=== PATIENT | female | born 1960 | race Caucasian/White ===

== ENCOUNTER 2020-09-25 15:11 | Outpatient (REF) | payer OTHER, SELFPAY | END 2020-09-25 15:12 | disposition home or self-care (01) | LOC: HO.LAB 15:11 | PROVIDERS: Visit Provider Internal Medicine | DX: Z20.828 Contact with and (suspected) exposure to other viral communicable diseases (principal) | CPT/HCPCS: C9803; U0003 ==

== ENCOUNTER 2020-10-17 12:46 | Emergency (ER) | payer OTHER, SELFPAY ==
[2020-10-17 13:53] VITALS: BP 150/80; PULSE 73; RESP 16; TEMP 36.8; O2SAT 97; BMI 26.9
--- NOTE | 2020-10-17 13:54 | ED_ITS ---
HPI - General Adult General Chief complaint: Back Pain/Injury <Chyna Hagan NP - Last Filed: 10/17/20 14:58> Stated complaint: back pain <Chyna Hagan NP - Last Filed: 10/17/20 14:58> Time Seen by Provider: 10/17/20 13:23 <Chyna Hagan NP - Last Filed: 10/17/20 14:58> Source: patient <Chyna Hagan NP - Last Filed: 10/17/20 14:58> Mode of arrival: ambulatory <Chyna Hagan NP - Last Filed: 10/17/20 14:58> Limitations: no limitations <Chyna Hagan NP - Last Filed: 10/17/20 14:58> History of Present Illness HPI narrative: 60yo female here with low back pain x 1 week. No radiation of pain. No numbness/tingling. No bowel or bladder incontinence. No fevers/chills. Pt is ambulatory. Listed allergy to naproxen but tells me she can take ibuprofen. <Chyna Hagan NP - Last Filed: 10/17/20 14:58> Onset (ago): week(s) <Chyna Hagan NP - Last Filed: 10/17/20 14:58> Location: back <Chyna Hagan NP - Last Filed: 10/17/20 14:58> Radiation: non-radiation <DEREK Meraz Last Filed: 10/17/20 14:58> Severity: mild <Chyna Hagan NP - Last Filed: 10/17/20 14:58> Pain Consistency: constant <Chyna Hagan NP - Last Filed: 10/17/20 14:58> Relieving factors: none <Chyna Hagan NP - Last Filed: 10/17/20 14:58> Exacerbating factors: none <DEREK Meraz Last Filed: 10/17/20 14:58> Associated symptoms: denies other symptoms <Chyna Hagan NP - Last Filed: 10/17/20 14:58> Treatments prior to arrival: none <Chyna Hagan NP - Last Filed: 10/17/20 14:58> Related Data Home medications: Previous Rx's Medication Instructions Recorded cyclobenzaprine 10 mg PO TID #10 tab 10/17/20 ibuprofen 800 mg PO Q8H PRN #20 tab 10/17/20 lidocaine [Lidoderm] 1 patch TOPICAL DAILY #15 ea 10/17/20 <Chyna Hagan NP - Last Filed: 10/17/20 14:58> Allergies/adverse reactions: Allergies Allergy/AdvReac Type Severity Reaction Status Date / Time naproxen [From NAPROSYN] Allergy Mild UPSET Unverified 06/15/20 18:12 STOMACH <Chyna Hagan NP - Last Filed: 10/17/20 14:58> Review of Systems Review of Systems: Yes all other systems are reviewed and are negative <Chyna Hagan NP - Last Filed: 10/17/20 14:58> Constitutional: Constitutional: Reports no additional constitutional complaints, Denies body ache(s), Denies chills, Denies fever(s), Denies headache(s) and Denies weakness <Chyna Hagan NP - Last Filed: 10/17/20 14:58> Eyes: Eyes: Reports no additional eye complaints and Denies change in vision <Chyna Hagan NP - Last Filed: 10/17/20 14:58> ENT: Reports system reviewed and no additional complaints, except as documented, Denies dizziness, Denies headache(s), Denies nasal congestion, Denies nasal discharge and Denies neck pain <Chyna Hagan NP - Last Filed: 10/17/20 14:58> Cardiovascular: Cardiovascular: Reports no additional cardiovascular complaints, Denies chest pain, Denies leg edema and Denies dyspnea <Chyna Hagan NP - Last Filed: 10/17/20 14:58> Respiratory: Respiratory: Reports no additional respiratory complaints, Denies cough and Denies dyspnea <Chyna Hagan NP - Last Filed: 10/17/20 14:58> Gastrointestinal: Gastrointestinal: Reports no additional gastrointestinal complaints, Denies abdominal pain, Denies diarrhea, Denies nausea and Denies vomiting <Chyna Hagan NP - Last Filed: 10/17/20 14:58> Genitourinary: Genitourinary: Reports no additional female genitourinary complaints and Denies urinary incontinence <Chyna Hagan NP - Last Filed: 10/17/20 14:58> Musculoskeletal: Musculoskeletal: Reports no additional musculoskeletal complaints, Reports back pain, Denies arthralgias, Denies joint swelling, Denies neck pain, Denies numbness and Denies tingling <Chyna Hagan NP - Last Filed: 10/17/20 14:58> Integumentary/Breasts: Skin/Breast: Reports system reviewed and no additional complaints, except as docu and Denies rash <Chyna Hagan NP - Last Filed: 10/17/20 14:58> Neurologic: Reports system reviewed and no additional complaints, except as documented, Denies Abnormal speech present, Denies dizziness, Denies headache(s), Denies numbness, Denies tingling and Denies weakness <Chyna Hagan NP - Last Filed: 10/17/20 14:58> PMF Past Medical History Attestation statement: The following information was validated with the patient. <Chyna Hagan NP - Last Filed: 10/17/20 14:58> Source: old records reviewed and nursing notes reviewed <Chyna Hagan NP - Last Filed: 10/17/20 14:58> Medical History: Medical History (Updated 10/18/20 @ 00:00 by Mitchell Rodriguez) Asthma Hyperlipidemia <Chyna Hagan NP - Last Filed: 10/17/20 14:58> Social History Social History: Social History Advance Directives: No Advance Directives Information Provided: No <Chyna Hagan NP - Last Filed: 10/17/20 14:58> Physical Exam Vital Signs: Vital Signs: Last Vital Signs Temp 98.2 F 10/17/20 13:53 Pulse 73 10/17/20 13:53 Resp 16 10/17/20 13:53 BP 150/80 H 10/17/20 13:53 Pulse Ox 97 10/17/20 13:53 Body Mass Index 26.9 <Chyna Hagan NP - Last Filed: 10/17/20 14:58> Vital Signs: Last Vital Signs Temp 98.2 F 10/17/20 13:53 Pulse 73 10/17/20 13:53 Resp 16 10/17/20 13:53 BP 150/80 H 10/17/20 13:53 Pulse Ox 97 10/17/20 13:53 Body Mass Index 26.9 <Valente Carlos MD - Last Filed: 10/25/20 08:18> Const: General: cooperative, healthy appearing, comfortable and no acute distress <Chyna Hagan NP - Last Filed: 10/17/20 14:58> Orientation/consciousness: patient oriented x3 <Chyna Hagan NP - Last Filed: 10/17/20 14:58> Limitations: no limitations <Chyna Hagan NP - Last Filed: 10/17/20 14:58> HENMT: Head: Yes normal to inspection <Chyna Hagan NP - Last Filed: 10/17/20 14:58> Ears: hearing grossly normal bilaterally <Chyna Hagan NP - Last Filed: 10/17/20 14:58> General nose exam: Normal external nose present <Chyna Hagan NP - Last Filed: 10/17/20 14:58> Face and sinus: Yes normal facial exam <Chyna Hagan NP - Last Filed: 10/17/20 14:58> Mouth: Normal oral and palatal mucosa present <Chyna Hagan NP - Last Filed: 10/17/20 14:58> Throat: Yes posterior oropharynx normal <Chyna Hagan NP - Last Filed: 10/17/20 14:58> Eyes: General: appearance normal, both eyes and all related structures <Chyna Hagan NP - Last Filed: 10/17/20 14:58> Pupils: Equal, round and reactive pupils present <Chyna Hagan NP - Last Filed: 10/17/20 14:58> Neck: Neck: Yes normal visual inspection <Chyna Hagan NP - Last Filed: 10/17/20 14:58> Chest: Chest palpation & inspection: normal inspection of the chest <Roseanne Hagan NP - Last Filed: 10/17/20 14:58> Resp: Effort & Inspection: normal respiratory effort <Chyna Hagan NP - Last Filed: 10/17/20 14:58> Auscultation: clear to auscultation bilaterally <Chyna Hagan NP - Last Filed: 10/17/20 14:58> Cardio: Rate: regular rate <Chyna Hagan NP - Last Filed: 10/17/20 14:58> Rhythm: regular rhythm <Chyna Hagan NP - Last Filed: 10/17/20 14:58> Peripheral pulses: Peripheral pulses 2+ throughout <DEREK Meraz L ast Filed: 10/17/20 14:58> GI: Inspection: Yes normal to inspection <Chyna Hagan NP - Last Filed: 10/17/20 14:58> Palpation (GI): Soft to palpation and nontender <Chyna Hagan NP - Last Filed: 10/17/20 14:58> Auscultation: normal bowel sounds <Chyna Hagan NP - Last Filed: 10/17/20 14:58> Back/Spine/Pelvis: Other: mild mid lumbar spinal tenderness with no step offs or deformities <Chyna Hagan NP - Last Filed: 10/17/20 14:58> Thoracic/Lumbar Spine: thoracic and lumbar spine normal to inspection and straight leg raise negative bilaterally <Chyna Hagan NP - Last Filed: 10/17/20 14:58> Skin: General skin exam: no rashes or lesions noted <Chyna Hagan NP - Last Filed: 10/17/20 14:58> Neuro: General: patient oriented x3, no focal motor deficits and normal sensation to monofilament <Chyna Hagan NP - Last Filed: 10/17/20 14:58> Cranial nerves: Yes Equal, round and reactive pupils present <Chyna Hagan NP - Last Filed: 10/17/20 14:58> Cognition (Neuro): normal cognition <Chyna Hagan NP - Last Filed: 10/17/20 14:58> Speech: No Abnormal speech present <Chyna Hagan NP - Last Filed: 10/17/20 14:58> Gait exam (Neuro): Normal gait present <Chyna Hagan NP - Last Filed: 10/17/20 14:58> Motor exam (neuro): 5/5 motor strength present throughout <Chyna Hagan NP - Last Filed: 10/17/20 14:58> Extrem: General: Yes normal to inspection <Chyna Hagan NP - Last Filed: 10/17/20 14:58> Course Course Course Narrative: 60yo female here with atraumatic low back pain. X-rays negative for bony abnormality. Likely lumbar strain No red flag symptoms or neurological deficits. Reviewed worrisome signs/symptoms with the patient and when to return to the ED. comfortable with discharge home. <Chyna Hagan NP - Last Filed: 10/17/20 14:58> I have reviewed the chart <Valente Carlos MD - Last Filed: 10/25/20 08:18> Medical Decision Making Medical Records Medical records reviewed: Yes I reviewed the patient's medical records. <Chyna Hagan NP - Last Filed: 10/17/20 14:58> Imaging Data lumbar xray: Attestation: I personally reviewed and interpreted this imaging study as follows: <Chyna Hagan NP - Last Filed: 10/17/20 14:58> Radiologist's impression: [address] [id number] ReportSigned Patient: Loulou Boothe#: [id number]: 1960Acct:[id number]/Sex: 60 / FADM Date: 10/17/20Loc: [facility] Dr: Ordering Physician: CHYNA HAGAN NP Date of Service: 10/17/20 Procedure(s): XR lumbar spine 2-3V Accession Number(s): [id number] cc: CHYNA HAGAN NP~ EXAMINATION: XR LUMBOSACRAL SPINE CLINICAL INFORMATION: No trauma. Low back pain COMPARISON: None TECHNIQUE: Three views of the lumbosacral spine. FINDINGS: There is normal lumbar lordosis. The vertebral heights and alignment is normal. No acute fracture or dislocation or subluxation seen. There is ununited ossification center anterior superior L4 and L5 vertebra suggestive of limbus vertebrae. The paravertebral soft tissues are normal. XR/XR lumbar spine 2-3V IMPRESSION: Unremarkable lumbar spine exam. <Chyna Hagan NP - Last Filed: 10/17/20 14:58> Discharge Plan Discharge Clinical Impression: Strain of lumbar region <Chyna Hagan NP - Last Filed: 10/17/20 14:58> Patient Disposition: Home, Self-Care <Chyna Hagan NP - Last Filed: 10/17/20 14:58> Instructions: Low Back Strain (ED) <Chyna Hagan NP - Last Filed: 10/17/20 14:58> Additional Instructions: Heat or ice Gentle stretching Avoid heavy lifting or bending <Chyna Hagan NP - Last Filed: 10/17/20 14:58> Prescriptions: New cyclobenzaprine 10 mg tablet 10 mg PO TID Qty: 10 RF: 0 lidocaine [Lidoderm] 5 % adhesive patch,medicated 1 patch topical DAILY Qty: 15 RF: 0 ibuprofen 800 mg tablet 800 mg PO Q8H PRN (Reason: pain) Qty: 20 RF: 0 <Chyna Hagan NP - Last Filed: 10/17/20 14:58> Referrals: Sunitha Miguel [Primary Care Provider] - 2 days <Chyna Hagan NP - Last Filed: 10/17/20 14:58> Interventions: ED Discharge Assessment Last Done: 10/17/20 14:44 <Chyna Hagan NP - Last Filed: 10/17/20 14:58> Discharge Date/Time: 10/17/20 14:45 <Chyna Hagan [facility]ISTRAT[facility] - Last Filed: 10/17/20 14:58>
== END 2020-10-17 14:45 | disposition home or self-care (01) ==
LOC: HO.ED 14:43
PROVIDERS: Emergency Provider Emergency Medicine; PCP Internal Medicine
DX: S39.012A Strain of muscle, fascia and tendon of lower back, initial encounter (principal); X58.XXXA Exposure to other specified factors, initial encounter; Y93.9 Activity, unspecified; Y92.9 Unspecified place or not applicable; Y99.9 Unspecified external cause status
CPT/HCPCS: 72100; 99283

== ENCOUNTER 2020-10-30 09:49 | Outpatient (REF) | payer OTHER, SELFPAY ==
--- NOTE | 2020-10-30 09:54 | MM_ITS ---
EXAMINATION: MM SCREENING DIGITAL BREAST TOMOSYNTHESIS, BILATERAL CLINICAL INFORMATION: Screening. Asymptomatic. The lifetime risk of breast cancer based on the Tyrer-Cuzick Model is 3.4%. COMPARISON: Mammography: August 11, 2019 and studies dating back to November 17, 2012 TECHNIQUE: Digital breast tomosynthesis is performed in both the craniocaudal and mediolateral oblique views along with computer-aided detection (CAD). Synthesized 2D images are generated from the tomosynthesis. FINDINGS: The breasts are almost entirely fatty (ACR BI-RADS breast composition Category a). There are no significant masses, abnormal calcifications, or other abnormalities. MM/MM tomosynthesis screening BI IMPRESSION: There are no significant changes from prior study. ASSESSMENT: BI-RADS 1: Negative RECOMMENDATION: Routine annual mammography screening. This patient's information was entered into a reminder system with a target due date for their next mammogram.
== END 2020-10-30 09:50 | disposition home or self-care (01) ==
LOC: HO.MAMMO 09:49
PROVIDERS: Visit Provider Internal Medicine
DX: Z12.31 Encounter for screening mammogram for malignant neoplasm of breast (principal)
CPT/HCPCS: 77063; 77067

== ENCOUNTER → 2021-01-02 10:14 | Outpatient (BNVA) | payer OTHER, SELFPAY | PROVIDERS: PCP Internal Medicine; Visit Provider Physician Assistant | DX: M77.12 Lateral epicondylitis, left elbow (principal); M77.02 Medial epicondylitis, left elbow | CPT/HCPCS: 20551; 99202; J1020 ==

== ENCOUNTER 2021-01-24 10:01 | Outpatient (REF) | payer OTHER, SELFPAY | END 2021-01-24 10:02 | disposition home or self-care (01) | LOC: HO.LAB 10:01 | PROVIDERS: Visit Provider Internal Medicine | DX: Z20.822 Contact with and (suspected) exposure to COVID-19 (principal) | CPT/HCPCS: C9803; U0003; U0005 ==

== ENCOUNTER 2021-01-24 11:00 | Outpatient (RCR) | payer OTHER, SELFPAY ==
--- NOTE | 2021-02-15 13:27 | MHC.OT.DC ---
[address] [phone] F: [phone] Occupational Therapy Discharge Note Provider: Zoraida Sheridan PA-C Diagnosis: Left lateral epicondylitis injected 01/02/21 Date of Evaluation: 01/11/21 Date of Discharge: 02/15/21 Treatments to Date: 3 Cancellations to Date: No Shows to Date: 1 Discharge Status: Visit Non-compliance Discharge Summary: Concepción was seen in OT for management of left lateral epicondylitis. After three visits, she was reporting slightly decreased pain, worse at night but improved w/ using towel roll at elbow. She has missed the past three appointments, but at this time has been educated on self management through joint protection, activity modification and home exercises. Electronically Signed By: ROB Castillo/Bassem Reviewed/agree with student documentation: N/A Therapist: Please Sign and return to therapist, thank you for your referral.
== END 2021-02-15 13:28 | disposition other institution (70) ==
LOC: HO.OT 11:00
PROVIDERS: PCP Internal Medicine; Visit Provider Physician Assistant
DX: M77.10 Lateral epicondylitis, unspecified elbow (principal)
CPT/HCPCS: 97035; 97110; 97166

== ENCOUNTER 2021-02-13 08:06 | Outpatient (REF) | payer OTHER, SELFPAY | END 2021-02-13 08:07 | disposition home or self-care (01) | LOC: HO.HOSX 08:06 | PROVIDERS: Visit Provider Physician Assistant | DX: Z13.89 Encounter for screening for other disorder (principal) ==

== ENCOUNTER 2021-02-20 09:52 | Outpatient (REF) | payer OTHER, SELFPAY ==
--- NOTE | ~2021-02-20 | XR_ITS ---
EXAMINATION: XR AP STANDING VIEWS OF BOTH KNEES XR RIGHT KNEE CLINICAL INFORMATION: Pain COMPARISON: 06/25/2011 TECHNIQUE: AP standing view of both knees as well as lateral and sunrise views of the right knee. FINDINGS: The right tibial plateaus have the appearance of concavity; however, this is likely related to the angle of the x-ray beam and not due to tibial plateau compression injuries. Joint spaces are maintained. The patellofemoral joint demonstrates some mild spurring about the medial patella facet. No effusion is identified. On lateral view there is a 3 mm density seen overlying the anterior aspect of the right knee joint which was present on previous study of 06/25/2011 and may represent loose body. XR/XR knee RT 2V IMPRESSION: Stable appearance of the right knee. Mild degenerative change patellofemoral joint. 3 mm bony density overlying anterior aspect of the right knee joint space which was present on previous study of 06/25/2011. No effusion.
--- NOTE | ~2021-02-20 | XR_ITS ---
EXAMINATION: XR AP STANDING VIEWS OF BOTH KNEES XR RIGHT KNEE CLINICAL INFORMATION: Pain COMPARISON: 06/25/2011 TECHNIQUE: AP standing view of both knees as well as lateral and sunrise views of the right knee. FINDINGS: The right tibial plateaus have the appearance of concavity; however, this is likely related to the angle of the x-ray beam and not due to tibial plateau compression injuries. Joint spaces are maintained. The patellofemoral joint demonstrates some mild spurring about the medial patella facet. No effusion is identified. On lateral view there is a 3 mm density seen overlying the anterior aspect of the right knee joint which was present on previous study of 06/25/2011 and may represent loose body. XR/XR knee standing BI IMPRESSION: Stable appearance of the right knee. Mild degenerative change patellofemoral joint. 3 mm bony density overlying anterior aspect of the right knee joint space which was present on previous study of 06/25/2011. No effusion.
== END 2021-02-20 09:53 | disposition home or self-care (01) ==
LOC: HO.HOSX 09:52
PROVIDERS: Visit Provider Physician Assistant
DX: M54.10 Radiculopathy, site unspecified (principal); R29.898 Other symptoms and signs involving the musculoskeletal system; M25.561 Pain in right knee; J45.909 Unspecified asthma, uncomplicated; E78.5 Hyperlipidemia, unspecified; Z88.6 Allergy status to analgesic agent
CPT/HCPCS: 73560; 73565; 99202

== ENCOUNTER → 2021-03-14 10:10 | Outpatient (BNVA) | payer OTHER, SELFPAY | PROVIDERS: PCP Internal Medicine; Visit Provider Anesthesiology | DX: M79.604 Pain in right leg (principal); G80.9 Cerebral palsy, unspecified | CPT/HCPCS: 99202 ==

== ENCOUNTER 2021-04-04 08:33 | Outpatient (REF) | payer OTHER, SELFPAY ==
--- NOTE | ~2021-04-04 | MR_ITS ---
MR LUMBAR SPINE WITHOUT IV CONTRAST CLINICAL INFORMATION: Intervertebral disc degeneration. COMPARISON: Lumbar spine radiographs 10/17/2020. TECHNIQUE: MRI of the lumbar spine was obtained using routine sequences without contrast. FINDINGS: There are 5 nonrib-bearing lumbar-type vertebral bodies. Lumbar alignment is normal. The vertebral body heights are maintained. There is disc desiccation at L3-L4. There is no bone marrow edema. There are no acute fractures. Multilevel endplate osteophytes. Disc volumes are maintained. The conus terminates at the L2 level. Bilateral parapelvic cysts. L1-L2 and the L2-L3 disc contours are normal. There is mild bilateral facet arthropathy at these 2 levels. No central canal stenosis and no foraminal stenosis at these levels. L3-L4: There is a small annular disc bulge and there is moderate bilateral facet arthropathy and ligamentum flavum thickening. No central canal stenosis. There is mild foraminal encroachment bilaterally. L4-L5: There is a small annular disc bulge and there is severe bilateral facet arthropathy. No central canal stenosis. Mild foraminal encroachment bilaterally. L5-S1: Small annular disc bulge and advanced left and moderate right facet arthropathy. Moderate left-sided foraminal stenosis with advanced facet arthropathy resulting in mild mass effect on the exiting left L5 nerve root. MR/MR lumbar spine wo con IMPRESSION: At L5-S1, advanced facet arthropathy results in moderate left foraminal stenosis with mild mass effect on the exiting left L5 nerve root. Additional degenerative changes throughout the lumbar spine as described.
== END 2021-04-04 08:34 | disposition home or self-care (01) ==
LOC: HO.MRI 08:33
PROVIDERS: PCP Internal Medicine; Visit Provider Anesthesiology
DX: M51.36 Other intervertebral disc degeneration, lumbar region (principal)
CPT/HCPCS: 72148

== ENCOUNTER → 2021-05-30 11:26 | Outpatient (BNVA) | payer OTHER, SELFPAY | PROVIDERS: PCP Internal Medicine; Visit Provider Anesthesiology | DX: G80.9 Cerebral palsy, unspecified (principal); M79.604 Pain in right leg; Z79.899 Other long term (current) drug therapy | CPT/HCPCS: Q3014 ==

== ENCOUNTER → 2021-06-11 13:38 | Outpatient (BNVA) | payer OTHER, SELFPAY | PROVIDERS: PCP Internal Medicine; Visit Provider Physician Assistant | DX: M77.02 Medial epicondylitis, left elbow (principal) | CPT/HCPCS: 99212 ==

== ENCOUNTER 2021-08-30 09:57 | Day surgery (SDC) | payer OTHER, SELFPAY ==
[2021-08-22 14:57] VITALS: BMI 26.9
--- NOTE | 2021-08-29 11:01 | HO.ANESPROP2 ---
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 (Acute) Past Medical History Medical History (Updated 08/22/21 @ 14:59 by Mariajose Atkinson, VICKI) Asthma Cerebral palsy Disc degeneration, lumbar Hyperlipidemia 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 Right leg pain Use of cane as ambulatory aid Surgical History Surgical History (Updated 08/22/21 @ 14:54 by Mariajose Atkinson RN) History of carpal tunnel release Hx of colonoscopy Social History Social History (Updated 08/22/21 @ 14:53 by Mariajose Atkinson RN) Alcohol intake: current Alcohol intake frequency: a few times a month Patient Tobacco Use Status: Never used Tobacco Current occupational status: retired Current occupation: right handed Meds Allergies Allergy/AdvReac Type Severity Reaction Status Date / Time naproxen [From NAPROSYN] AdvReac Intermediate UPSET Verified 09/05/21 13:53 STOMACH/ vomiting Home Medications Medication Instructions Recorded Confirmed Last Taken Type cholecalciferol (vitamin D3) 50 50 mcg PO DAILY 03/14/21 08/22/21 Unknown History mcg (2,000 unit) tablet fluticasone propionate 44 2 puff INHALATION BID 03/14/21 08/22/21 Unknown History mcg/actuation HFA aerosol inhaler gabapentin 600 mg tablet 600 mg PO BEDTIME 03/14/21 08/22/21 Unknown History baclofen 10 mg tablet 10 mg PO TID 08/22/21 08/22/21 Unknown History citalopram 20 mg tablet 1 tab PO DAILY 08/22/21 08/22/21 Unknown History Exam Exam Date and Time: August 29, 2021 1101 Height,Weight and Vital Signs: Height 5 ft Weight 62.596 kg Assessment and Plan Assessment Anesthesia Assessment: Chart Reviewed
--- NOTE | ~2021-08-30 | FL_ITS ---
EXAMINATION: XR FLUOROSCOPY WITH IMAGES CLINICAL INFORMATION: L2, L3, L4, TR, L5 right MBB COMPARISON: None. TECHNIQUE: Fluoroscopy performed by Dr. Uzair Rodriguez. Fluoroscopy time: 0.4 minutes DAP: 3.15 mGycm2 Images: 4 FINDINGS: There is a needle placed showing injection of contrast peripheral margin of L5. Additional contrast seen at the L4, L3, and L2 levels. FL/FL guidance in OR IMPRESSION: Fluoroscopic guidance for injection along the lumbar spine. Please refer to procedural report for further information.
[2021-08-30 10:47] VITALS: BP 139/67; PULSE 72; RESP 16; TEMP 36.4; O2SAT 98
[2021-08-30] MEDS: Lactated Ringers 1,000 ML 100 ML IVCONT (10:59)
--- NOTE | 2021-08-30 12:08 | P.BOP_ITS ---
Brief Operative Note Date of Service: 08/30/21 Pre-op diagnosis: Spondylosis lumbar spine Post-op diagnosis: same Procedure: Diagnostic medial branch block L2-L3 L4 dorsal ramus L5 on the right Implants: None Surgeon: Uzair Rodriguez MD Anesthesia: MAC Was an Electronics Teacher used for this Procedure?: No Estimated blood loss (mL): 0 Pathology: none sent Condition: stable Disposition: PACU
--- NOTE | 2021-08-30 12:08 | MHC.SHP ---
Pre-Procedural Eval Section A Date of Service: 08/30/21 Section B Chief Complaint: Cerebral Palsy Details of Present Illness: spondylosis lumbar spine Relevant Family History (Specify if Yes): No Relevant Social History: None Present Medications: see Short Stay Collaborative assessment Medical History: No relevant PMH History of Previous Operations: No relevant previous surgery Allergies: Allergies Allergy/AdvReac Type Severity Reaction Status Date / Time naproxen [From NAPROSYN] AdvReac Intermediate UPSET Verified 08/22/21 14:54 STOMACH/ vomiting Review of Systems Sugical H&P ROS: Negative: Constitution, Cardiovascular, Respiratory, Neurological, Psychiatric, Hem-Onc, Allergic/Immunologic, Gastrointestinal, Genitourinary, Musculoskeletal, Integumentary, Endocrine and Eyes/Ears/Nose/Throat Exam Surgical H&P Exam: Normal: HEENT, Normal: Heart, Normal: Lungs, Normal: Extremities, Normal: Abdomen, Normal: Skin and Normal: Neurological Plan Diagnosis/Plan: Unchanged I have reviewed the history and physical and performed a pertinent physical examination on my patient. No changes have occurred unless specified.
--- NOTE | 2021-08-30 12:51 | W.PM.OPN ---
Operative Note Operative Note Date of Service: 08/30/21 Narrative: Informed consent was explained to the patient all risks and benefits were explained. Patient was taking to the operating room where she was positioned prone on the operating table. [employer] monitors were applied and patient was moderately sedated. Time-out was performed delineating correct site and side of the procedure. Name of the patient allergies and risk of DVT prophylaxis as well as need for antibiotics were addressed during the time-out. Patient's lower back was prepped with DuraPrep and ChloraPrep and draped with sterile utility towels. C-arm was brought of the operating field and sq picture of lower 3 vertebra of the spine were obtained on the screen. The point of interest were delineated as the connection of superior articular process of L3 vertebra to the corresponding transverse process of the same vertebra on the right as well as connection of the superior articular process of L4 vertebra to the corresponding transverse process of the same vertebra on the right as well as connection of the superior articular process of L5 vertebra with corresponding transverse process on the right as well as connection of the superior articular process of S1 vertebra with sacral alae. The projections of the point of interest to the skin were injected with small amount of lidocaine 2%. After that 22 gauge 3-1/2 inch needle was sequentially driven to the points of interest in tunnel vision fashion. When needle gently contacted the bone at the point of interest injection of the contrast was performed delineating no intravascular and no intrathecal uptake of the contrast. After that small amount of bupivacaine less than 1 cc without any steroids was injected into each needle position. Upon completion of the injections needle was removed and sterile dressing was applied. Patient was tolerating procedure well she was awaken taking out of the operating room to recovery room where she recovered uneventfully. She went home without immediate complications.
[2021-08-30 12:53] VITALS: BP 128/77; PULSE 76; RESP 18; TEMP 36.6; O2SAT 95
[2021-08-30 13:08] VITALS: BP 130/86; PULSE 77; RESP 18; TEMP 36.1; O2SAT 97
== END 2021-08-30 13:51 | disposition home or self-care (01) ==
PROVIDERS: PCP Internal Medicine; Visit Provider Anesthesiology
PROC: (CPT 64493; principal; 2021-08-30 11:30)
DX: G80.9 Cerebral palsy, unspecified (principal); M79.604 Pain in right leg; M47.816 Spondylosis without myelopathy or radiculopathy, lumbar region; R25.2 Cramp and spasm; R53.1 Weakness; R26.2 Difficulty in walking, not elsewhere classified; Z88.8 Allergy status to other drugs, medicaments and biological substances
CPT/HCPCS: 64493; 64494; J2250; J3010; Q9967

== ENCOUNTER → 2021-09-05 13:52 | Outpatient (BNVA) | payer OTHER, SELFPAY | PROVIDERS: PCP Internal Medicine; Visit Provider Anesthesiology | DX: M79.604 Pain in right leg (principal); G80.9 Cerebral palsy, unspecified | CPT/HCPCS: Q3014 ==

== ENCOUNTER 2021-09-06 10:00 | Outpatient (RCR) | payer OTHER, SELFPAY | END 2021-09-20 10:40 | disposition home or self-care (01) | LOC: HO.PT 10:00 | PROVIDERS: PCP Internal Medicine; Visit Provider Physician Assistant Medical | DX: R26.2 Difficulty in walking, not elsewhere classified (principal); R25.2 Cramp and spasm | CPT/HCPCS: 97110; 97112; 97162 ==

== ENCOUNTER 2021-10-18 08:05 | Outpatient (REF) | payer OTHER, SELFPAY ==
--- NOTE | 2021-10-18 08:09 | EMG_ITS ---
Left median and ulnar motor and sensory studies were performed. Left radial sensory study was performed and paraspinal muscles were tested with a needle. IMPRESSION: 1. Mild left ulnar neuropathy across cubital tunnel. 2. Mild left median neuropathy across carpal tunnel. MD NAHUN Lane/JHOAN / [phone]
== END 2021-10-18 08:06 | disposition home or self-care (01) ==
LOC: HO.NEURO 08:05
PROVIDERS: Visit Provider Physician Assistant
DX: M77.02 Medial epicondylitis, left elbow (principal); M77.10 Lateral epicondylitis, unspecified elbow
CPT/HCPCS: 95886; 95909

== ENCOUNTER 2022-01-10 13:29 | Outpatient (REF) | payer OTHER, SELFPAY ==
--- NOTE | ~2022-01-10 | MM_ITS ---
EXAMINATION: MM SCREENING DIGITAL BREAST TOMOSYNTHESIS, BILATERAL CLINICAL INFORMATION: Screening. Asymptomatic. The lifetime risk of breast cancer based on the Tyrer-Cuzick Model is 4%. COMPARISON: Mammography: 06/29/2021, 08/11/2019, 07/13/2018 TECHNIQUE: Digital breast tomosynthesis is performed in both the craniocaudal and mediolateral oblique views along with computer-aided detection (CAD). Synthesized 2D images are generated from the tomosynthesis. Additional right CC view is provided. FINDINGS: There are scattered areas of fibroglandular density (ACR BI-RADS breast composition Category b). There are no significant masses, abnormal calcifications, or other abnormalities. Parenchymal pattern is similar to prior studies. There is no developing density or architectural abnormality. The axilla and skin contours are unremarkable. No significant changes. MM/MM tomosynthesis screening BI IMPRESSION: No mammographic evidence of malignancy. ASSESSMENT: BI-RADS 1: Negative RECOMMENDATION: Routine annual mammography screening. This patient's information was entered into a reminder system with a target due date for their next mammogram.
== END 2022-01-10 13:30 | disposition home or self-care (01) ==
LOC: HO.MAMMO 13:29
PROVIDERS: Visit Provider Internal Medicine
DX: Z12.31 Encounter for screening mammogram for malignant neoplasm of breast (principal)
CPT/HCPCS: 77063; 77067

== ENCOUNTER 2022-01-28 07:14 | Day surgery (SDC) | payer OTHER, SELFPAY ==
--- NOTE | 2022-01-25 10:33 | MHC.SHP ---
Pre-Procedural Eval Section A Date of Service: 01/25/22 The patient is an INPATIENT: No Changes since office visit: No Cold of Flu in the past 2 weeks, No New Medical Problems, No Changes in Medication and No Patient answered all questions The History & Physical has been completed within 30 days and I have reviewed it.: Yes Section B Chief Complaint: extra skin upper lids Allergies: Allergies Allergy/AdvReac Type Severity Reaction Status Date / Time naproxen [From NAPROSYN] AdvReac Intermediate UPSET Verified 09/05/21 13:53 STOMACH/ vomiting Plan Diagnosis/Plan: Unchanged I have reviewed the history and physical and performed a pertinent physical examination on my patient. No changes have occurred unless specified.
--- NOTE | 2022-01-25 12:08 | HO.ANESPROP2 ---
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 (Acute) Past Medical History Medical History (Updated 08/22/21 @ 14:59 by Mariajose Atkinson RN) Asthma Cerebral palsy Disc degeneration, lumbar Hyperlipidemia 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 Right leg pain Use of cane as ambulatory aid Surgical History Surgical History (Updated 08/22/21 @ 14:54 by Mariajose Atkinson RN) History of carpal tunnel release Hx of colonoscopy Social History Social History (Updated 08/22/21 @ 14:53 by Mariajose Atkinson, VICKI) Alcohol intake: current Alcohol intake frequency: a few times a month Patient Tobacco Use Status: Never used Tobacco Use of substances other than those prescribed or required for medical reasons: No Are you DNR?: No Advance Directives: No Advance Directives Information Provided: Yes Current occupational status: retired Current occupation: right handed Meds Allergies Allergy/AdvReac Type Severity Reaction Status Date / Time naproxen [From NAPROSYN] AdvReac Intermediate UPSET Verified 01/28/22 07:30 STOMACH/ vomiting Home Medications Medication Instructions Recorded Confirmed Last Taken Type cholecalciferol (vitamin D3) 50 50 mcg PO DAILY 03/14/21 08/22/21 Unknown History mcg (2,000 unit) tablet fluticasone propionate 44 2 puff INHALATION BID 03/14/21 08/22/21 Unknown History mcg/actuation HFA aerosol inhaler gabapentin 600 mg tablet 600 mg PO BEDTIME 03/14/21 08/22/21 Unknown History baclofen 10 mg tablet 10 mg PO TID 08/22/21 08/22/21 Unknown History citalopram 20 mg tablet 1 tab PO DAILY 08/22/21 08/22/21 Unknown History Exam Exam Date and Time: January 25, 2022 9503 Assessment and Plan Assessment Anesthesia Assessment: Chart Reviewed
[2022-01-28 07:36] VITALS: BMI 27.3
[2022-01-28 07:38] VITALS: BP 148/80; PULSE 67; RESP 16; TEMP 36.9; O2SAT 98
[2022-01-28] MEDS: Lactated Ringers 500 ML 50 ML IV (07:53)
--- NOTE | 2022-01-28 08:59 | HO.PNOPHT ---
Ophthalmology Procedure Procedure Date of Service: 01/28/22 Ophthalmology Viscoelastic: Not Applicable Ophthalmology Lenses: Not Applicable Procedure Notes: PREOPERATIVE DIAGNOSIS: Decreased visual field secondary to dermatochalasia POSTOPERATIVE DIAGNOSIS: Same PROCEDURE: Bilateral Blepharoplasty, upper eyelids SURGEON: Salas Hull M.D. ANESTHESIA: Local with sedation ESTIMATED BLOOD LOSS: None COMPLICATIONS: None After obtaining informed consent, the patient was brought to the operating room and placed in supine position. After adequate sedation per Anesthesia, the eyes were prepped and draped in the usual sterile fashion. Attention was directed to the right eye where a double pinch test was completed to assure excess tissue was not removed from the upper lid. The margin was marked at the proposed incision sites. The left eye was done in a similar fashion. 2% Lidocaine with epinephrine was then instilled subcutaneously along the margin of the pre-marked skin incisions. #15 scalpel blade was then utilized to create the incisions. Using a combination of sharp and blunt dissection with Luzma scissors, the epidermis was removed. Hemostasis was achieved with cautery. 6-0 plain suture was then utilized to close the incision site. Attention was directed to the left upper lid where subcutaneous 2% with Epinephrine Lidocaine was instilled along the pre-marked areas. A #15 scalpel blade was then utilized to create the incisions followed by sharp and blunt dissection with Luzma scissors to remove the overlying epidermis. Hemostasis was achieved with cautery, followed by closure with 6-0 plain suture. The patient tolerated the procedure well. The patient will be followed up in the a.m. Topical antibiotic ointment was instilled over the incision sites and ice as tolerated for 48 hours.
[2022-01-28 10:10] VITALS: BP 129/81; PULSE 68; RESP 16; TEMP 36.3; O2SAT 98
== END 2022-01-28 10:35 | disposition home or self-care (01) ==
PROVIDERS: PCP Internal Medicine; Visit Provider Ophthalmology
PROC: (CPT 15823; principal; 2022-01-28 09:00)
DX: H02.834 Dermatochalasis of left upper eyelid (principal); H02.831 Dermatochalasis of right upper eyelid; H40.013 Open angle with borderline findings, low risk, bilateral; H52.4 Presbyopia; J45.909 Unspecified asthma, uncomplicated; G80.9 Cerebral palsy, unspecified; G80.1 Spastic diplegic cerebral palsy; G25.81 Restless legs syndrome; D50.9 Iron deficiency anemia, unspecified; F43.10 Post-traumatic stress disorder, unspecified; E78.5 Hyperlipidemia, unspecified; Z79.51 Long term (current) use of inhaled steroids; Z79.82 Long term (current) use of aspirin; Z79.899 Other long term (current) drug therapy; Z88.8 Allergy status to other drugs, medicaments and biological substances
CPT/HCPCS: 15823; J2250; J3010

== ENCOUNTER 2023-02-11 13:26 | Outpatient (REF) | payer OTHER, SELFPAY ==
--- NOTE | ~2023-02-11 | MM_ITS ---
EXAMINATION: MM SCREENING DIGITAL BREAST TOMOSYNTHESIS, BILATERAL CLINICAL INFORMATION: Screening. Asymptomatic. The lifetime risk of breast cancer based on the Tyrer-Cuzick Model is 8%. COMPARISON: Mammography: 01/10/2022, 10/30/2020, 08/11/2019 TECHNIQUE: Digital breast tomosynthesis is performed in both the craniocaudal and mediolateral oblique views along with computer-aided detection (CAD). Synthesized 2D images are generated from the tomosynthesis. FINDINGS: There are scattered areas of fibroglandular density (ACR BI-RADS breast composition Category b). There are no significant masses, abnormal calcifications, or other abnormalities. No architectural abnormality or developing density or significant change from prior studies. The axilla and skin contours are unremarkable. MM/MM tomosynthesis screening BI IMPRESSION: No mammographic evidence of malignancy. ASSESSMENT: BI-RADS 1: Negative RECOMMENDATION: Routine annual mammography screening. This patient's information was entered into a reminder system with a target due date for their next mammogram.
== END 2023-02-11 13:27 | disposition home or self-care (01) ==
LOC: HO.MAMMO 13:26
PROVIDERS: PCP Internal Medicine; Visit Provider Internal Medicine
DX: Z12.31 Encounter for screening mammogram for malignant neoplasm of breast (principal)
CPT/HCPCS: 77063; 77067

== ENCOUNTER 2023-06-16 11:00 | Outpatient (RCR) | payer OTHER, SELFPAY | END 2023-09-03 12:26 | disposition home or self-care (01) | LOC: HO.PT 11:00 | PROVIDERS: PCP Internal Medicine; Visit Provider Physical Medicine & Rehabilitation | DX: G80.1 Spastic diplegic cerebral palsy (principal) | CPT/HCPCS: 97110; 97116; 97163; 97530 ==

== ENCOUNTER 2024-01-01 13:37 | Emergency (ER) | payer OTHER, SELFPAY ==
--- NOTE | ~2024-01-01 | XR_ITS ---
EXAMINATION: XR KNEE, LEFT CLINICAL INFORMATION: atraumatic medial knee pain/ swelling COMPARISON: AP standing views of knees February 20, 2021 TECHNIQUE: Two views of the left knee. FINDINGS: No fracture or joint effusion. Alignment is anatomic. Joint spaces are maintained. No abnormal soft tissue calcification. XR/XR knee LT 2V IMPRESSION: Normal left knee.
--- NOTE | 2024-01-01 13:42 | ED.LOWEXIN ---
HPI - Extremity Injury (Lower) General Chief Complaint: Extremity Problem Stated Complaint: l knee pain Time Seen by Provider: 01/01/24 14:50 History of Present Illness HPI Narrative: Concepción is 63 year old female with history of radiculopathy, left leg weakness, chronic knee and leg pain, lumbar disc degeneration, cerebral palsy, hypomyelination of brainstem and spinal cord, presents today for evaluation of worsening L knee pain for 1 day. Reports onset of pain yesterday with aching anterior patellar pain. Has been using acetaminophen with little relief. Normally ambulates with cane and/or walker. Reports that pain became a 7/10 today, travelled medially, and became warm to touch. Reports limited ROM of left lower extremity. Denies recent history of injury or trauma. Denies posterior pain or swelling. Onset (ago): day(s) Severity: moderate Severity scale (1-10): 7 Related Data Home Medications ?Medication ?Instructions ?Recorded ?Confirmed cholecalciferol (vitamin D3) 50 50 mcg PO DAILY 03/14/21 08/22/21 mcg (2,000 unit) tablet fluticasone propionate 44 2 puff inhalation BID 03/14/21 08/22/21 mcg/actuation HFA aerosol inhaler gabapentin 600 mg tablet 600 mg PO BEDTIME 03/14/21 08/22/21 baclofen 10 mg tablet 10 mg PO TID 08/22/21 08/22/21 citalopram 20 mg tablet 1 tab PO DAILY 08/22/21 08/22/21 Previous Rx's ?Medication ?Instructions ?Recorded cyclobenzaprine 10 mg tablet 10 mg PO TID #10 tabs 10/17/20 ibuprofen 800 mg tablet 800 mg PO Q8H PRN pain #20 tabs 10/17/20 Allergies Allergy/AdvReac Type Severity Reaction Status Date / Time naproxen [From NAPROSYN] AdvReac Intermediate UPSET Verified 01/01/24 13:44 STOMACH/ vomiting Review of Systems Review of Systems: Yes all other systems are reviewed and are negative PMFSH Past Medical History Medical History (Updated 01/01/24 @ 16:28 by JT Still) Use of cane as ambulatory aid Disc degeneration, lumbar Right leg pain Cerebral palsy 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 Asthma Hyperlipidemia Surgical History (Updated 08/22/21 @ 14:54 by Mariajose Atkinson RN) Hx of colonoscopy History of carpal tunnel release Social History Social History (Updated 08/22/21 @ 14:53 by Mariajose Atkinson RN) Alcohol intake: current Alcohol intake frequency: a few times a month Patient Tobacco Use Status: Never used Tobacco Advance Directives: No Advance Directives Information Provided: No Patient : No Current occupational status: retired Current occupation: right handed Physical Exam Vital Signs: Vital Signs: Last Vital Signs Temp 98.6 F 01/01/24 16:34 Pulse 72 01/01/24 16:34 Resp 18 01/01/24 16:34 BP 141/74 H 01/01/24 16:34 Pulse Ox 98 01/01/24 16:34 O2 Del Method Room Air 01/01/24 16:34 BMI result Body Mass Index 24.6 Appearance: Alert. Oriented X3. No acute distress. Head: normocephalic, atraumatic. CVS: Normal heart rate and rhythm. Pulses normal. Respiratory: No respiratory distress. Breath sounds normal. Abdomen: Soft and nontender. Skin: Skin warm and dry. Normal skin color. Normal skin turgor. No rashes. Extremities: No lower extremity edema. No joint swelling. No overlying erythema of left patella. Reports tenderness to palpation of L anterior patella and medial region. Guarding with passive ROM. Audible crepitus with passive ROM. Negative anterior & posterior drawer. Neuro/psych: Oriented X 3. No motor deficit. Course Course Course Narrative: RME:?63 yo female w/ hx of cerebral palsy here for eval of atraumatic left knee pain/ swelling that began yesterday, worsening since onset. took Tylenol and gabapentin last night. no known hx of gout. denies recent travel or long car rides. denies chest pain, cough, hemoptysis. no fall/injury/trauma. ttp over medial aspect of left knee w/o palpable deformity. exam limited in triage as patient is in pants. imaging ordered. Full HPI, ROS and PE to be performed by the primary ED provider. Medical Decision Making Medical Decision Making MDM Narrative: Concepción is 63 year old female with history of radiculopathy, left leg weakness, chronic knee and leg pain, lumbar disc degeneration, cerebral palsy, hypomyelination of brainstem and spinal cord, presents today for evaluation of worsening L knee pain for 1 day. Reports onset of pain yesterday with aching anterior patellar pain. On exam, she has limited ROM of L lower extremity and unable to complete passive knee flexion and extension. Crepitus is audible with passive flexion. Presentation is most consistent with medial epicondylitis most likely secondary to chronic osteoporosis. She states that she is following with orthopedics and is scheduled for steroid injection for her left hip. Was seen by orthopedics in 2020 for evaluation of right knee pain, and chronic low back/leg pain. She was referred to Pain management as she previously was treated with steroid injections. Pain could be flared due to worsening of her hip pain. XRay completed today is negative for fracture or osteoarthritic changes. We discussed pain management with tylenol, weight bearing as tolerated, compression rest, elevation, warm/ice compresses as need. Will send home with OVI bandage for compression relief. Follow up with her primary care, pain management, orthopedics for further evaluation and management. Low suspicion for DVT. Low suspicion for septic/inflammatory arthritis secondary to lack of inflammation, erythema, and edema. Differential Diagnosis Differential Diagnoses: The differential diagnosis associated with the presentation includes medial epicondylitis of left knee, referred pain secondary to osteoporosis/ hip pain, patellar tendonitis, bursitis, osteoarthritis, DVT, septic arthritis, inflammatory arthritis Independent Interpretation I performed an independent interpretation of an: Plain X-Ray Interpretation: normal knee, no effusion, no fx Radiology Impression Discussion of test interpretation with radiology: I have reviewed the radiologist's reading. Radiologist Impression: EXAMINATION: XR KNEE, LEFT CLINICAL INFORMATION: atraumatic medial knee pain/ swelling COMPARISON: AP standing views of knees February 20, 2021 TECHNIQUE: Two views of the left knee. FINDINGS: No fracture or joint effusion. Alignment is anatomic. Joint spaces are maintained. No abnormal soft tissue calcification. XR/XR knee LT 2V IMPRESSION: Normal left knee. External Record Review External record reviewed: Office record, Outpatient record and Prior outpatient radiology Prescription Management I considered prescription management with: Pain Medication Chronic Conditions Patient?s care impacted by: Other (CP) Social Determinants Patient?s care significantly limited by Social Determinants of Health including: Other Social Determinant of Health Discharge Plan Discharge Clinical Impression: Strain of left knee Qualifiers: Encounter type: initial encounter Qualified Code(s): S86.912A - Strain of unspecified muscle(s) and tendon(s) at lower leg level, left leg, initial encounter Patient Disposition: Home, Self-Care Instructions: Knee Pain (ED) Additional Instructions: Your knee x-ray today was normal. Recommend wearing the Ovi wrap for some compression and support. Recommend [id number] Motrin or Tylenol as needed for pain. Recommend following up with orthopedic provider for further evaluation and treatment. Name and number below. Call for an appointment. Follow-up with pain management for further management of your chronic pain. If you develop new or worsening symptoms call 911 or come back to the ER for further evaluation. Prescriptions: No Action cyclobenzaprine 10 mg tablet 10 mg PO TID Qty: 10 0RF ibuprofen 800 mg tablet 800 mg PO Q8H PRN (Reason: pain) Qty: 20 0RF citalopram 20 mg tablet 1 tab PO DAILY baclofen 10 mg tablet 10 mg PO TID Flovent HFA 44 mcg/actuation HFA aerosol inhaler 2 puff inhalation BID cholecalciferol (vitamin D3) 50 mcg (2,000 unit) tablet 50 mcg PO DAILY gabapentin 600 mg tablet 600 mg PO BEDTIME Referrals: [facility] [Provider Group] Interventions: ED Discharge Assessment Last Done: 01/01/24 16:34 Discharge Date/Time: 01/01/24 16:35 Print Language: Palauan
[2024-01-01 13:43] VITALS: BP 156/91; PULSE 70; RESP 18; TEMP 36.6; O2SAT 99; BMI 24.6
[2024-01-01 14:56] VITALS: BP 141/74; PULSE 72; RESP 18; TEMP 37; O2SAT 98
[2024-01-01 16:34] VITALS: BP 141/74; PULSE 72; RESP 18; TEMP 37; O2SAT 98
== END 2024-01-01 16:35 | disposition home or self-care (01) ==
PROVIDERS: Emergency Provider Emergency Medicine
DX: S86.912A Strain of unspecified muscle(s) and tendon(s) at lower leg level, left leg, initial encounter (principal); M25.562 Pain in left knee; X58.XXXA Exposure to other specified factors, initial encounter; Y93.9 Activity, unspecified; Y92.9 Unspecified place or not applicable; Y99.8 Other external cause status
CPT/HCPCS: 73560; 99283

== ENCOUNTER 2024-02-06 09:54 | Outpatient (AMB) | payer OTHER, SELFPAY ==
--- NOTE | 2024-02-06 10:12 | MHC.OFFVIS ---
Intake Visit Reasons: New Prob - Lt knee pain Intake Note: Concepción is a 63 year old female who presents today for a evaluation of her left knee pain. no hx of injury. Patient reports ongoing pain for more than 3 months. She expresses that her pain is on the medial aspect of the knee. Pain is worse when sitting for too long and using the stairs. Patient has tried and failed taking NSAIDs/Tylenol. She has tried and failed a knee brace. Patient finds mild relief with compound cream, however it doesn't help for too long. Allergies naproxen [From NAPROSYN] Adverse Reaction (Intermediate, Verified 02/06/24 10:14) UPSET STOMACH/ vomiting HPI HPI New Prob - Lt knee pain: Details: 63-year-old female who presents in the office today for an evaluation of left knee pain. Patient presented to the ED on 01/01/2024 with a complaint of worsening left knee pain since 12/31/2023. X-rays were obtained. She was placed in an RAMYA wrap for compression. While in the office today the patient reports ongoing pain for more than 3 months. She claims her pain is on the medial aspect of the left knee. Reports increased pain when sitting for long periods of time and with the use of stairs. Patient has tried and failed NSAIDs, Tylenol and a knee brace. She finds relief with a topical cream, but states this does not last for long. Patient was seen by Orthopedics in 2020 when she was referred to Pain Management. She has a history of cortisone injections. Patient has a significant medical history of radiculopathy, left leg weakness, chronic knee and leg pain, lumbar disc degeneration, cerebral palsy, hypomyelination of brainstem and spinal cord. 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 Asthma Hyperlipidemia Surgical History (Updated 08/22/21 @ 14:54 by Mariajose Atkinson RN) Hx of colonoscopy History of carpal tunnel release Social History Alcohol intake: current Alcohol intake frequency: a few times a month Patient Tobacco Use Status: Never used Tobacco Current occupational status: retired Current occupation: right handed Review of Systems Const All systems reviewed & are unremarkable except as noted in HPI and below Physical Exam Const General: cooperative, healthy appearing and no acute distress Resp Effort & Inspection: normal respiratory effort and able to speak in complete sentences Cardio Rate: regular rate Peripheral pulses: Peripheral pulses 2+ throughout GI Palpation (GI): Soft to palpation Skin Lesions: no lesions Rashes: no rashes Extrem Other: Left knee: Normal to inspection. No ecchymosis, erythema, or joint effusion. No tenderness to palpation along the medial or lateral joint lines. Full knee extension and flexion. Crepitus felt with ROM. NVI. Office Procedures Joint Injection/Drain Joint Injection/Drain Primary Site: left knee Prep: site was prepped using aseptic technique, site was prepped using sterile technique and ethochloride spray was applied Injected: 80 mg of, DepoMedrol and with 8 mL of (2% plain lido ) Approach Used: anterolateral Procedure: The patient tolerated the procedure well, but had some pain with the injection and there was some relief with the local anesthesia Coding 50639 - Large joint Procedure code (CPT) selection complete Assessment & Plan Assessment & Plan (1) Osteoarthritis of left knee: Code(s): M17.12 - Unilateral primary osteoarthritis, left knee Category: Medical Plan Ms. Boothe is a 63-year-old female who presents in the office today for an evaluation of left knee pain. Patient presented to the ED on 01/01/2024 with a complaint of worsening left knee pain since 12/31/2023. X-rays were obtained. She was placed in an RAMYA wrap for compression. While in the office today the patient reports ongoing pain for more than 3 months. She claims her pain is on the medial aspect of the left knee. Reports increased pain when sitting for long periods of time and with the use of stairs. Patient has tried and failed NSAIDs, Tylenol and a knee brace. She finds relief with a topical cream, but states this does not last for long. Patient was seen by Orthopedics in 2020 when she was referred to Pain Management. She has a history of cortisone injections. Patient has a significant medical history of radiculopathy, left leg weakness, chronic knee and leg pain, lumbar disc degeneration, cerebral palsy, hypomyelination of brainstem and spinal cord. The patient was offered a cortisone injection in the left knee with 80 mg of DepoMedrol. The patient was explained the risk, benefits, and alternatives to receiving this injection. After receiving consent for the injection, the patient had the procedure done while in the office today. The patient tolerated the procedure well with no complications. Follow up will be PRN, or sooner if needed. X-rays of the left knee which were obtained while in the office today and were reviewed by me, Zoraida Sheridan PA-C, revealed osteoarthritis. X-rays of the left knee, obtained on 01/01/2024, revealed: No acute fractures or dislocations. Orders: Orders XR knee LT 1V Today M25.569 - Pain in unspecified knee Patient Instructions: Scribed by Selena Lucero director of medical services, for Zoraida Sheridan PA-C on 02/06/2024 at 10:06 am, EST. Coding Level of Care Code Est Pt Level 3 (37108) Diagnoses Osteoarthritis of left knee M17.12 CPT Codes Coding - 85149 Large joint: 20791 - Large joint ([id number])
== END 2024-02-06 12:24 | disposition home or self-care (01) ==
PROVIDERS: Visit Provider Physician Assistant
DX: M17.12 Unilateral primary osteoarthritis, left knee (principal)
CPT/HCPCS: 20610; 99213

== ENCOUNTER 2024-02-06 10:53 | Outpatient (REF) | payer OTHER, SELFPAY ==
--- NOTE | ~2024-02-06 | XR_ITS ---
EXAM: X-RAY LEFT KNEE CLINICAL INFORMATION: Pain in unspecified knee. COMPARISON: 01/01/2024. TECHNIQUE: Single sunrise view of the left knee. FINDINGS: Single sunrise view of the left knee demonstrates prominent hypertrophic spurring along the posterior medial aspect of the patella. XR/XR knee LT 1V IMPRESSION: Hypertrophic spurring along the posterior medial aspect of the patella.
== END 2024-02-06 10:54 | disposition home or self-care (01) ==
LOC: HO.HOSX 10:53
PROVIDERS: Visit Provider Physician Assistant
DX: M17.12 Unilateral primary osteoarthritis, left knee (principal)
CPT/HCPCS: 20610; 73560; 99212; J1010

== ENCOUNTER 2024-02-18 10:47 | Outpatient (REF) | payer OTHER, SELFPAY | END 2024-02-18 10:48 | disposition home or self-care (01) | LOC: HO.MAMMO 10:47 | PROVIDERS: PCP Internal Medicine; Visit Provider Internal Medicine | DX: Z12.31 Encounter for screening mammogram for malignant neoplasm of breast (principal) | CPT/HCPCS: 77063; 77067 ==

== ENCOUNTER → 2024-02-18 11:15 | Outpatient (BNV) | payer OTHER, SELFPAY | PROVIDERS: PCP Internal Medicine; Visit Provider Radiology Diagnostic Radiology | DX: Z12.31 Encounter for screening mammogram for malignant neoplasm of breast (principal) | CPT/HCPCS: 77063; 77067 ==

== ENCOUNTER 2024-08-12 19:08 | Emergency (ER) | payer OTHER, SELFPAY ==
--- NOTE | ~2024-08-12 | CT_ITS ---
EXAMINATION: CT HEAD WITHOUT CONTRAST CLINICAL INFORMATION: Right-sided headache COMPARISON: MRI brain 10/20/2013 TECHNIQUE: Contiguous axial imaging was performed from the skull base to vertex without intravenous administration of contrast. This CT examination was performed using dose optimization techniques as appropriate, variously including the following: *Automated exposure control *Adjustment of mA and/or kV according to patient size (this includes techniques or standardized protocols for targeted exams where dose is matched to indication/reason for exam; i.e. extremities or head) *Use of iterative reconstruction technique DLP: 616 mGy-cm FINDINGS: No intracranial hemorrhage, tumors or acute infarcts identified. The ventricles and sulci are normal in size and configuration. No focal parenchymal lesions of the brain or abnormal extra-axial fluid collections identified. Minimal segmental calcific atherosclerotic plaques of the cavernous portions of the internal carotid arteries. Normal appearance of the orbits and globes. No extracranial soft tissue inflammatory changes. Incidental 9 mm lobulated density within the left maxillary sinus which may represent a mucosal retention cyst. No mastoid or middle ear cavity effusions. CT/CT head/brain wo IV con IMPRESSION: Minimal segmental calcific atherosclerosis of the cavernous portions of the internal carotid artery; otherwise, normal unenhanced CT of the head. Electronically signed by: Mor Marsh MD 08/13/2024 02:20 AM ANNITA
[2024-08-12 19:19] VITALS: BP 145/82; PULSE 74; RESP 20; TEMP 36.6; O2SAT 98; BMI 24.2
[2024-08-12 20:52] LABS: Influenza A PCR NEGATIVE (Negative); Influenza B PCR NEGATIVE (Negative); Resp Syncy Virus RNA Qual PCR NEGATIVE (Negative); SARS COV2 PCR INHOUSE NEGATIVE (Negative)
[2024-08-13 00:25] VITALS: BP 149/80; PULSE 70; RESP 18; TEMP 36.7; O2SAT 99
--- NOTE | 2024-08-13 01:40 | ED.GENADULT ---
HPI - General Adult General Chief complaint: Headache Stated complaint: pain in back of head Time Seen by Provider: 08/13/24 01:03 Source: patient, RN notes reviewed and old records reviewed Mode of arrival: ambulatory Limitations: no limitations History of Present Illness ED Provider: Pedro ADDISON narrative: 64-year-old female past medical history significant for cerebral palsy, osteoarthritis, degenerative disc disease, for evaluation of a right-sided headache. Patient reports pain behind her right ear and indicates her occipital region. The pain started about 1 week ago. She has some relief with Tylenol but her pain returns. She reports some intermittent dizziness She denies other associated symptoms including, ear pain, blurry vision Her pain is currently an 8/10. She reports a history of previous headaches but states that known have lasted this long She denies any recent falls but reports falling about a year and a half ago and striking her forehead and not being seen for that She is not anticoagulated Related Data Home Medications ?Medication ?Instructions ?Recorded ?Confirmed cholecalciferol (vitamin D3) 50 50 mcg PO DAILY 03/14/21 08/22/21 mcg (2,000 unit) tablet fluticasone propionate 44 2 puff inhalation BID 03/14/21 08/22/21 mcg/actuation HFA aerosol inhaler gabapentin 600 mg tablet 600 mg PO BEDTIME 03/14/21 08/22/21 baclofen 10 mg tablet 10 mg PO TID 08/22/21 08/22/21 citalopram 20 mg tablet 1 tab PO DAILY 08/22/21 08/22/21 trazodone 50 mg tablet 50 mg PO BEDTIME 02/06/24 Previous Rx's ?Medication ?Instructions ?Recorded cyclobenzaprine 10 mg tablet 10 mg PO TID #10 tabs 10/17/20 ibuprofen 800 mg tablet 800 mg PO Q8H PRN pain #20 tabs 10/17/20 bccjwtiyxu-uontedsawezep-gvqwwzkf 1 cap PO Q4-6H PRN Headache/pain 08/13/24 50 mg-300 mg-40 mg capsule #10 caps (Fioricet) Allergies Allergy/AdvReac Type Severity Reaction Status Date / Time naproxen [From NAPROSYN] AdvReac Intermediate UPSET Verified 08/12/24 19:21 STOMACH/ vomiting Review of Systems Constitutional: Constitutional: Denies body ache(s), Denies chills, Denies fever(s) and Reports headache(s) Eyes: Eyes: Denies blurry vision ENT: Reports dizziness, Denies ear discharge, Denies otalgia and Reports headache(s) Cardiovascular: Cardiovascular: Denies chest pain, Denies chest pain at rest and Denies dyspnea Respiratory: Respiratory: Denies cough and Denies dyspnea Gastrointestinal: Gastrointestinal: Denies abdominal pain, Denies nausea and Denies vomiting Musculoskeletal: Musculoskeletal: Denies back pain Integumentary/Breasts: Skin/Breast: Denies erythema, Denies rash and Denies wounds Neurologic: Reports dizziness and Reports headache(s) [facility] Past Medical History Medical History (Updated 08/13/24 @ 01:48 by Jagdish Duron) Use of cane as ambulatory aid Disc degeneration, lumbar Right leg pain Cerebral palsy 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 Asthma Hyperlipidemia Surgical History (Updated 08/22/21 @ 14:54 by Mariajose Atkinson RN) Hx of colonoscopy History of carpal tunnel release Social History Social History Alcohol intake: current Alcohol intake frequency: a few times a month Patient Tobacco Use Status: Never used Tobacco Advance Directives: No Patient : No Current occupational status: retired Current occupation: right handed Physical Exam ED Vital Signs: Vital Signs - 24 hr 08/12/24 19:19 08/13/24 00:25 08/13/24 02:00 Temperature 97.8 F 98.1 F 97.7 F Pulse Rate 74 70 83 Respiratory Rate 20 18 16 Blood Pressure 145/82 H 149/80 H 139/67 Pulse Oximetry 98 99 97 Oxygen Delivery Method Room Air Room Air Room Air BMI result Body Mass Index 24.2 Const General: healthy appearing, comfortable, no acute distress, alert and awake Nutritional Appearance: well nourished Orientation/consciousness: patient oriented x3 HENMT Other: Patient has tenderness in the right occipital region. There is no mastoid tenderness, no pre or postauricular edema. Head: Yes normocephalic and Yes atraumatic Ears: TM's normal bilaterally and EAC's normal Eyes Eyelids: Yes eyelids normal Conjunctivae: conjunctivae normal Sclerae: sclerae normal Corneas: corneas normal Pupils: Equal, round and reactive pupils present EOM: EOMs intact bilaterally Neck Neck: Yes full ROM Resp Effort & Inspection: normal respiratory effort, able to speak in complete sentences and not labored Cardio Rate: regular rate Rhythm: regular rhythm GI Inspection: No distended Palpation (GI): Soft to palpation, not firm, nontender, no guarding and not rigid Skin General skin exam: elasticity normal Neuro General: patient oriented x3 Cranial nerves: Yes CN's II-XII intact bilaterally, Yes Equal, round and reactive pupils present and Yes Bilaterally intact EOM present Cognition (Neuro): normal cognition Medications Administered Discontinued Medications Generic Name Dose Route Start Last Admin Trade Name Freq PRN Reason Stop Dose Admin Acetaminophen/Butalbital/Caffeine 1 tab 08/13/24 01:12 08/13/24 01:53 Butalb/Acetamin/Caff 50/325/40 Tablet PO 08/13/24 01:13 1 tab ONCE ONE Administration Medical Decision Making Medical Decision Making MDM Narrative: 64-year-old female with a past medical history as documented above presents for evaluation of a headache. Her pain is right-sided only, it has been present for 1 week. She has no focal neurologic deficits. NIH stroke score of 0. No recent trauma. We will treat her headache with Fioricet. I did order a CT scan of the brain as the patient is 64 years old and reports that she has never had imaging of her brain. I do not have any suspicion for CVA at this time. Her symptoms may be related to a migraine headache, tension headache, cluster headache. Less likely component arteritis as the patient's pain is not temporal region 08/13/2024 at 04:38 hours,Dr. Rebel Palacios's note: I assumed care of this patient from my colleague, physician assistant vice president Yves duron at 02:00 hours. Patient presented to the emergency department for evaluation right-sided headache and pain behind her right ear. The CT scan of the patient's head did not reveal any acute finding to explain her headache which is reassuring. Patient was treated with Fioricet and she states that her pain is completely resolved. Therefore I prescribed Fioricet 1 pill every 6 hours as needed for headache. She was given printed and verbal instructions and discharged home. Differential Diagnosis Differential Diagnoses: The differential diagnosis associated with the presentation includes Acute headache Tension headache Cluster headache Intracranial mass Mastoiditis less likely Otitis media Otitis externa less likely Admission/Observation Consideration of admission/observation: Escalation of care including admission/observation considered (Yes) Lab Data Labs: Lab Results 08/12/24 Range/Units 20:02 Influenza Type A (PCR) NEGATIVE (Negative) Influenza Type B (PCR) NEGATIVE (Negative) RSV RNA Qual (PCR) NEGATIVE (Negative) SARS-CoV-2 RNA (RT-PCR) NEGATIVE (Negative) Independent Interpretation I performed an independent interpretation of an: CT Scan (No large intracranial hemorrhage, mass effect or midline shift) Radiology Impression Radiologist Impression: CT head/brain wo IV con IMPRESSION: Minimal segmental calcific atherosclerosis of the cavernous portions of the internal carotid artery; otherwise, normal unenhanced CT of the head. Electronically signed by: Mor Marsh MD 08/13/2024 02:20 AM [facility] [place] Dictated By: Mor Marsh MD Discharge Plan Discharge Clinical Impression: Acute headache Patient Disposition: Home, Self-Care Instructions: Acute Headache (ED) Additional Instructions: The CT scan of your brain did not reveal a cause for your headache which is reassuring. Take Fioricet (butalbital/acetaminophen/caffeine) 1 pill every 6 hours as needed for headache. This pill will make you sleepy, do not drive or work while taking this medication. Follow-up with your doctor in 2 days. Please return to the emergency department if your symptoms get worse or if you develop any symptoms that are concerning to you. Prescriptions: New toqkdtnurb-ovnfpgkyydirl-nooo [Fioricet] 50-300-40 mg capsule 1 cap PO Q4-6H PRN (Reason: Headache/pain) Qty: 10 0RF No Action cyclobenzaprine 10 mg tablet 10 mg PO TID Qty: 10 0RF ibuprofen 800 mg tablet 800 mg PO Q8H PRN (Reason: pain) Qty: 20 0RF citalopram 20 mg tablet 1 tab PO DAILY baclofen 10 mg tablet 10 mg PO TID Flovent HFA 44 mcg/actuation HFA aerosol inhaler 2 puff inhalation BID cholecalciferol (vitamin D3) 50 mcg (2,000 unit) tablet 50 mcg PO DAILY gabapentin 600 mg tablet 600 mg PO BEDTIME trazodone 50 mg tablet 50 mg PO BEDTIME Print Language: [place]
[2024-08-13] MEDS: Butalb/Acetamin/Caff 50/325/40 TABLET 1 TAB PO (01:53)
[2024-08-13 02:00] VITALS: BP 139/67; PULSE 83; RESP 16; TEMP 36.5; O2SAT 97
[2024-08-13 05:04] VITALS: BP 139/67; PULSE 83; RESP 16; TEMP 36.5; O2SAT 97
== END 2024-08-13 05:05 | disposition home or self-care (01) ==
PROVIDERS: Physician Assistant; Emergency Provider Emergency Medicine Emergency Medical Services; PCP Internal Medicine
DX: R51.9 Headache, unspecified (principal); G80.9 Cerebral palsy, unspecified; J45.909 Unspecified asthma, uncomplicated; E78.5 Hyperlipidemia, unspecified; Z79.899 Other long term (current) drug therapy; Z03.818 Encounter for observation for suspected exposure to other biological agents ruled out
CPT/HCPCS: 0241U; 70450; 99284

== ENCOUNTER 2024-09-26 09:22 | Emergency (ER) | payer OTHER, SELFPAY ==
--- NOTE | ~2024-09-26 | XR_ITS ---
CLINICAL HISTORY: cough sob 2 view chest x-ray. Comparison: None Findings: Normal lung volumes. Lungs are clear. No pneumothorax or pleural effusion. Heart size normal. No passive venous congestion. No midline shift or tracheal deviation. No acute fracture. Right shoulder arthroplasty. Impression: 1. No acute cardiopulmonary disease. This document has been electronically signed by: Glenn Suarez MD on 09/26/2024 09:57:10
[2024-09-26 09:27] VITALS: BP 133/83; PULSE 93; RESP 16; TEMP 36.2; O2SAT 100; BMI 25.9
--- NOTE | 2024-09-26 09:49 | ECG_ITS ---
Test Reason : CHEST PAIN Blood Pressure : / mmHG Vent. Rate : 085 BPM Atrial Rate : 085 BPM P-R Int : 130 ms QRS Dur : 092 ms QT Int : 388 ms P-R-T Axes : 053 047 061 degrees QTc Int : 461 ms Normal sinus rhythm Normal ECG No previous ECGs available Referred By: Juan Luis Priest Electronically Signed By:KVNG MATHEW MD
--- NOTE | 2024-09-26 10:02 | ED_ITS ---
HPI - URI/Sore Throat General Chief Complaint: Upper Respiratory Symptoms Stated Complaint: Cough SOB Time Seen by Provider: 09/26/24 09:43 Source: patient, family and developer analyst Mode of arrival: ambulatory Limitations: no limitations History of Present Illness ED Provider: DR. Priest HPI Narrative: A 64 female came in for evaluation of 2-3 weeks of generalized weakness, dry coughing, chest pain when she coughs, no fever, no chills. No sick contacts, no recent travel, no prolonged immobilization, mid chest pain only with coughing with no radiation or shortness of breath. Patient was using her albuterol inhaler with no relief. Related Data Home Medications ?Medication ?Instructions ?Recorded ?Confirmed cholecalciferol (vitamin D3) 50 50 mcg PO DAILY 03/14/21 08/22/21 mcg (2,000 unit) tablet fluticasone propionate 44 2 puff inhalation BID 03/14/21 08/22/21 mcg/actuation HFA aerosol inhaler gabapentin 600 mg tablet 600 mg PO BEDTIME 03/14/21 08/22/21 baclofen 10 mg tablet 10 mg PO TID 08/22/21 08/22/21 citalopram 20 mg tablet 1 tab PO DAILY 08/22/21 08/22/21 trazodone 50 mg tablet 50 mg PO BEDTIME 02/06/24 Previous Rx's ?Medication ?Instructions ?Recorded cyclobenzaprine 10 mg tablet 10 mg PO TID #10 tabs 10/17/20 ibuprofen 800 mg tablet 800 mg PO Q8H PRN pain #20 tabs 10/17/20 nrdyxabfoq-jtxaaucwyheya-uffdzljf 1 cap PO Q4-6H PRN Headache/pain 08/13/24 50 mg-300 mg-40 mg capsule #10 caps (Fioricet) albuterol sulfate 90 mcg/actuation 1 inh inhalation Q4-6H PRN 09/26/24 breath activated powder inhaler shortness of breath #1 ea azithromycin 250 mg tablet See Rx Instructions PO .COMPLEX #6 09/26/24 (Zithromax Z-Marcin) tabs prednisone 20 mg tablet 20 mg PO BID #10 tabs 09/26/24 Allergies Allergy/AdvReac Type Severity Reaction Status Date / Time naproxen [From NAPROSYN] AdvReac Intermediate UPSET Verified 09/26/24 09:28 STOMACH/ vomiting Review of Systems Review of Systems: All other systems are reviewed and are negative Constitutional: Reports as per HPI and Reports no additional constitutional complaints Eyes: Reports as per HPI and Reports no additional eye complaints Reports system reviewed and no additional complaints, except as documented Cardiovascular: Reports as per HPI and Reports no additional cardiovascular complaints Respiratory: Reports as per HPI and Reports no additional respiratory complaints Gastrointestinal: Reports as per HPI and Reports no additional gastrointestinal complaints Genitourinary: Reports no additional female genitourinary complaints Musculoskeletal: Reports no additional musculoskeletal complaints Skin/Breast: Reports system reviewed and no additional complaints, except as docu Psychiatric: Reports no additional psychiatric complaints Endocrine: Reports no additional endocrine complaints Hematologic/Lymphatic: Reports no additional hematologic/lymphatic complaints Allergic/Immunologic: Reports no additional allergic/immunologic complaints Reports system reviewed and no additional complaints, except as documented and Reports Abnormal speech present [facility] Past Medical History Medical History Use of cane as ambulatory aid Disc degeneration, lumbar Right leg pain Cerebral palsy 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 Asthma Hyperlipidemia Surgical History Hx of colonoscopy History of carpal tunnel release Social History Social History Alcohol intake: current Alcohol intake frequency: a few times a month Patient Tobacco Use Status: Never used Tobacco Advance Directives: No Advance Directives Information Provided: No Current occupational status: retired Current occupation: right handed Physical Exam Vital Signs: Vital Signs: Last Vital Signs Temp 97.2 F 09/26/24 09:27 Pulse 93 09/26/24 09:27 Resp 16 09/26/24 09:27 BP 133/83 09/26/24 09:27 Pulse Ox 100 09/26/24 09:27 O2 Del Method Room Air 09/26/24 09:27 BMI result Body Mass Index 25.9 Vital signs have been reviewed and appear to be correct. Blood pressure elevated. Heart rate normal. Respiratory rate normal. Temperature normal. Oxygen saturation normal. Appearance: Alert. Oriented X3. No acute distress. Head: Normal external exam. Normocephalic. Atraumatic. No Sales signs noted. No raccoon eyes noted Eyes: PERRLA. EOMI. Conjunctiva and sclera normal. Eyelids normal. ENT: TM's Normal. Pharynx normal. Uvula midline. Moist mucous membranes. No trismus noted. No drooling noted. No muffled voice noted. Neck: Normal inspection. Neck supple. FROM. No adenopathy. Thyroid Normal. No meningeal signs. No neck mass noted. CVS: Normal heart rate and rhythm. Heart sound normal. No murmurs noted. Pulses normal throughout. Respiratory: No respiratory distress. Painless inspiration. Breath sounds normal. Diffuse mild expiratory wheezing with prolonged expiration and decreased air entry bilaterally. No accessory muscle usage noted or decreased air movement noted. Abdomen: Soft and nontender. Bowel sounds normal in all 4 quadrants. No distention noted. No organomegaly noted. No visible injury noted. Back: No CVA tenderness. Full range of motion noted. Skin: Skin warm and dry. Normal skin color. Normal skin turgor. No rashes/lesions/lacerations noted. Extremities: No lower extremity edema. Extremities exhibit normal range of motion. Extremities nontender. Neuro: Oriented X 3. Cranial nerve exam: II-XII are grossly intact No motor deficit. No sensory deficit. Reflexes normal. Course Reevaluation(s) Reevaluation #1: Bronchopneumonia start the patient on Z-Marcin, prednisone, albuterol. Time: 12:00 Medical Decision Making Differential Diagnosis Differential Diagnoses: The differential diagnosis associated with the presentation includes (Pneumonia, pneumothorax, pleural effusion, influenza, COVID-19 infection, RSV, ACS.) Admission/Observation Consideration of admission/observation: Escalation of care including admission/observation considered Lab Data MDM Lab Attestation statement: I reviewed the patient's lab results. Independent Interpretation I performed an independent interpretation of an: EKG (Normal sinus rhythm at 85 beats per minutes, normal intervals, normal axis deviation, no ST-T changes.) and Plain X-Ray (No acute intrathoracic pathology.) Radiology Impression Discussion of test interpretation with radiology: I have reviewed the radiologist's reading. Discharge Plan Discharge Clinical Impression: Bronchopneumonia Patient Disposition: Home, Self-Care Instructions: Acute Bronchitis (ED) Prescriptions: New azithromycin [Zithromax Z-Marcin] 250 mg tablet See Rx Instructions .ROUTE .COMPLEX Qty: 6 0RF Rx Instructions: For 250 mg dose pack: take 500 mg today (day 1), then 250 mg for 4 days (days 2-5) prednisone 20 mg tablet 20 mg PO BID Qty: 10 0RF albuterol sulfate 90 mcg/actuation aerosol powdr breath activated 1 inh inhalation Q4-6H PRN (Reason: shortness of breath) Qty: 1 0RF No Action cyclobenzaprine 10 mg tablet 10 mg PO TID Qty: 10 0RF ibuprofen 800 mg tablet 800 mg PO Q8H PRN (Reason: pain) Qty: 20 0RF citalopram 20 mg tablet 1 tab PO DAILY baclofen 10 mg tablet 10 mg PO TID [id number]-hvwpjoicaisqp-[id number] [Fioricet] 50-300-40 mg capsule 1 cap PO Q4-6H PRN (Reason: Headache/pain) Qty: 10 0RF Flovent HFA 44 mcg/actuation HFA aerosol inhaler 2 puff inhalation BID cholecalciferol (vitamin D3) 50 mcg (2,000 unit) tablet 50 mcg PO DAILY gabapentin 600 mg tablet 600 mg PO BEDTIME trazodone 50 mg tablet 50 mg PO BEDTIME Print Language: [place]anian
[2024-09-26 10:08] LABS: MANUAL DIFF FLAG NO
[2024-09-26 10:09] LABS: Basophils Absolute Auto 0.1 X10*3/uL (0.0-0.2); Basophils Percent Auto 0.8 % (0-2); Eosinophils Absolute Auto 0.1 X10*3/uL (0.0-0.4); Eosinophils Percent Auto 1.7 % (0-4); Hematocrit 35.6 % (37.0-47.0); Hemoglobin 11.6 g/dl (12.0-16.0); Imm Gran Abs Auto 0.01 X10*3/uL (0.00-0.03); Imm Gran Pct Auto 0.2 % (0.0-0.4); Lymphocytes Absolute Auto 2.8 X10*3/uL (1.2-4.9); Lymphocytes Percent Auto 42.7 % (20-40); Mean Corpuscular HGB Conc 32.6 g/dl (31.0-35.0); Mean Corpuscular Hemoglobin 28.3 pg (27.0-33.0); Mean Corpuscular Volume 86.8 fL (80.0-98.0); Mean Platelet Volume 9.8 fL (9.4-12.3); Monocytes Absolute Auto 0.4 X10*3/uL (0.1-1.2); Monocytes Percent Auto 5.3 % (2-11); Neutrophils Absolute Auto 3.3 x10*3/uL (2.0-8.3); Neutrophils Percent Auto 49.3 % (45-73); Platelet Count 232 X10*3/uL (160-400); Red Cell Distribution Width 13.1 % (11.0-16.0); White Blood Count 6.6 X10*3/uL (4.8-10.8)
[2024-09-26 10:25] LABS: Influenza A PCR NEGATIVE (Negative); Influenza B PCR NEGATIVE (Negative); Resp Syncy Virus RNA Qual PCR NEGATIVE (Negative); SARS COV2 PCR INHOUSE NEGATIVE (Negative)
[2024-09-26 10:28] LABS: Anion Gap 13 (12-20); Blood Urea Nitrogen 17 mg/dL (9-16); Calcium 9.2 mg/dL (8.4-10.2); Carbon Dioxide 23 mmol/L (22-29); Chloride 110 mmol/L (96-108); Creatinine Clr Calc Pharmacy 63.9; Estimated Glomerular Filt Rate > 60; Glucose Random 117 mg/dL (60-115); Potassium 3.6 mmol/L (3.3-5.1); Sodium 142 mmol/L (135-145)
[2024-09-26 10:30] VITALS: BP 127/67; PULSE 86; RESP 16; TEMP 36.6; O2SAT 96
[2024-09-26 10:38] LABS: Troponin-I High Sensitivity < 2.7 ng/L (<3.5-17.0)
[2024-09-26 12:37] VITALS: BP 143/81; PULSE 70; RESP 14; TEMP 36.7; O2SAT 98
[2024-09-26 13:26] VITALS: BP 138/74; PULSE 77; RESP 16; TEMP 36.8; O2SAT 98
== END 2024-09-26 13:28 | disposition home or self-care (01) ==
PROVIDERS: Emergency Provider Emergency Medicine; PCP Internal Medicine
DX: J18.0 Bronchopneumonia, unspecified organism (principal); R05.9 Cough, unspecified; R06.02 Shortness of breath; R07.89 Other chest pain; Z03.818 Encounter for observation for suspected exposure to other biological agents ruled out; Z79.899 Other long term (current) drug therapy
CPT/HCPCS: 0241U; 36415; 71046; 80048; 84484; 85025; 93005; 99284

== ENCOUNTER → 2024-09-26 09:29 | Outpatient (BNV) | payer OTHER, SELFPAY | PROVIDERS: Emergency Provider Emergency Medicine; PCP Internal Medicine; Visit Provider Radiology Diagnostic Radiology | DX: R05.9 Cough, unspecified (principal); R06.02 Shortness of breath | CPT/HCPCS: 71046 ==

== ENCOUNTER → 2024-09-26 09:49 | Outpatient (BNV) | payer OTHER, SELFPAY | PROVIDERS: Emergency Provider Emergency Medicine; PCP Internal Medicine; Visit Provider Internal Medicine Cardiovascular Disease | DX: R07.9 Chest pain, unspecified (principal) | CPT/HCPCS: 93010 ==

== ENCOUNTER 2025-02-23 10:43 | Outpatient (REF) | payer OTHER, SELFPAY ==
--- OUTSIDE RECORDS SUMMARY | 2025-02-23 11:47 | XMS_ITS | Data Portability ---
Author Organization [facility], In in - [facility] Address [address] [place] [phone] Care Team Providers Care Senior Ssis Developer Name Role Phone HIM CCA OTHER Assessment Encounter Date Assessment Date Assessment LastModified by Organization Details LastModified Time 01/13/2023 01/13/2023 I provided real -time medical direction via phone for this encounter, and was available for additional phone based assistance as needed. I have reviewed and agree with the Assessment and Plan as documented by the Director Integrated. Patient given the opportunity to ask questions. Patient was referred for an intermittent cough two weeks. Was prescribed meds (she doesn't remember what it was) and resolved. reoccurred last Friday (01/08). Also reports: +sore throat but denies CP, JONES, SOB, fever, chills. Is already taking, robitussin, albuterol MDI 4 x day. Director Integrated reports LCTA. No coughing while present. COVID/Flu are negative. Assessment - viral URI Plan: Tessalon Pearls prn, can continue Robitussin F/u with PCP via telephone in approx a week efner Not available 01/13/2023 14:34:46 Plan of Treatment Reminders Order Date Submit Date Provider Last Modified By Organization Details Last Modified Time Details Appointments None recorded. Lab rapid SARS CoV 2 Ag, QL IA, respiratory specimen [address], [address] [place] [address], [id number] 3 14:27:05 rapid flu (A+B) [email or web address] [place] [address], [address] [place] [address], [phone] 3 14:27:05 Referral None recorded. Procedures None recorded. Surgeries None recorded. Imaging None recorded. Medication Orders Tessalon Perles 100 mg capsule 2022 023 [facility][id number], [address] [facility], [place], [address], 14:27:15 Patient TargetsNo targets recorded. Patient InstructionsNo instructions recorded. Reason for Referral None Reported. Results Created Date Observation Date Name Description Value Unit Range Abnormal Flag Note LastModifiedBy Organization Detail LastModifiedTime 01/14/2001/13/2023 rapid SARS CoV 2 Ag, QL IA, respi rator y speci men rapid SARS CoV 2 Ag, QL IA, respiratory specimen negati ve Not Available Main - [facility] ed [address] [place] [address], [phone] 01/13/2023 14:26:06 01/14/2001/13/2023 rapid flu (A+B) Flu negati ve Not Available [facility] ed [address] [place] [address], [phone] 01/13/2023 14:26:07 Result Notes None recorded. Medical Equipment None Reported. Allergies Allergen ID Allergen Name Allergen Category Reaction Reaction Severity Criticality Documentation Date Start Date Code Code System Note Provider Name and Address Organization Details Recorded Time 41969 naproxen sodium medicatio n Not available Not available Not available 08/12/2024 00868 2 RxNorm Not Available [facility] 14:53:38 Medications Name Sig Start Date Stop Date Status Note LastModified by Organization Details LastModified Time gabapentin 600 mg tablet TAKE 1 TABLET BY MOUTH EVERYDAY AT BEDTIME active Not Available Not Available No t Available atorvastatin 20 mg tablet TAKE 1 TABLET BY MOUTH EVERY DAY active Not Available Not Available No t Available oxybutynin chloride ER 10 mg tablet,exten ded release 24 hr TAKE 1 TABLET BY MOUTH EVERY DAY active Not Available Not Available No t Available senna 8.6 mg tablet TAKE 2 TABLETS BY MOUTH EVERY DAY AT BEDTIME NEEDED CONSTIPATIO N active Not Available Not Available No t Available meloxicam 7.5 mg tablet TAKE 1 TABLET BY MOUTH EVERY DAY active Not Available Not Available No t Available citalopram 20 mg tablet TAKE 1 TABLET BY MOUTH DAILY 30 DAYS INSTR:DISCO NTINUE SERTRALINE active Not Available Not Available N ot Available baclofen 10 mg tablet TAKE 1 AND 1/2 TAB BY MOUTH 4 TIMES A DAY X30 DAYS active Not Available Not Available No t Available benzonatate 100 mg capsule TAKE 1 CAPSULE BY MOUTH THREE TIMES A DAY FOR 10 DAYS active Not Available Not Available Not Available erythromycin 5 mg/gram (0.5 %) eye ointment APPLY 1/4 INCH TO SURGICAL AREA 3 TIMES A DAY BRING MEDICATION UN OPENED TO SURGERY active Not Available Not Available N ot Available docusate sodium 100 mg capsule TAKE 1 CAPSULE BY MOUTH TWICE A DAY NEEDED FOR CONSTIPATIO N active Not Available Not Available No t Available furosemide 20 mg tablet TAKE 1 TABLET BY MOUTH EVERY OTHER DAY NEEDED FOR LEG SWELLING active Not Available Not Available No t Available albuterol sulfate HFA 90 mcg/actuatio n aerosol inhaler TAKE 1 PUFF 4 TIMES A DAY, NEEDED :WHEEZING/S HORTNESS OF BREATH active Not Available Not Available No t Available fluticasone propionate 50 mcg/actuatio n nasal spray,suspen mehran SPRAY 1 SPRAYS NARES, BOTH 2 TIMES A DAY,X90 DAYS active Not Available Not Available No t Available Laxative (bisacodyl) 5 mg tablet,delay ed release TAKE 2 TABLETS BY MOUTH DAILY IF NO BOWEL MOVEMENT IN 2 DAYS. CONTINUE WITH DOCUSATE & MIRALAX DAILY active Not Available Not Available No t Available Flovent HFA 44 mcg/actuatio n aerosol inhaler INHALE 2 PUFFS TWICE A DAY active Not Available Not Available No t Available cholecalcife rol (vitamin D3) 50 mcg (2,000 unit) capsule TAKE 1 CAPSULE BY MOUTH EVERY DAY active Not Available Not Available No t Available Vitamin D3 50 mcg (2,000 unit) tablet TAKE 1 TABLET BY MOUTH EVERY DAY active Not Available Not Available No t Available Gavilax 17 gram/dose oral powder MIX 17 GM BY MOUTH 2 TIMES A DAY active Not Available Not Available Not Available Poly-Vi-Jennifer with Iron 11 mg iron/mL oral drops TAKE 1ML BY MOUTH DAILY active Not Available Not Available Not Available Vitals Date Recorded Body temperature Body weight Respiratory rate Oxygen saturation Oxygen saturation in Arterial blood by Pulse oximetry Heart rate Systolic blood pressure Diastolic blood pressure Provider Name and Address Organization Details Last Updated DateTime 3 99.1 [degF] 40168.6 96 g 16 /min 99 % 99 % 120 /min 168 mm[Hg] 82 mm[Hg] Not Available [facility] - production 3 14:24:33 Date Recorded Oxygen saturation Oxygen saturation in Arterial blood by Pulse oximetry Heart rate Body weight Respiratory rate Body temperature Body height Systolic blood pressure Diastolic blood pressure Provider Name and Address Organization Details Last Updated DateTime 4 99 % 99 % 77 /min 83486.8 g 14 /min 97.8 [degF] 152.4 cm 164 mm[Hg] 102 mm[Hg] Not Available [facility] - production 4 18:18:46 Social History None recorded. Functional Status None recorded. Mental Status None recorded. Family History Nothing Reported. Medical History No medical history recorded. Gynecological HistoryNo gynecological history recorded. Obstetrics History GPAL:G 0 P 0 0 0 0 Past Encounters Encounter ID Performer Location Encounter Start Date Encounter Closed Date Diagnosis/Indication Diagnosis SNOMED-CT Code Diagnosis ICD10 Code Diagnosis Note [id number] Malini Kaba MD Main - [facility] [address] [place] [phone] 01/13/2023 14:24:31 01/14/2023 11:39:37 Viral upper respiratory tract infection 340710993 J06.9 [id number] Payton Casas MD Main - [facility] [address] [place] [phone] 08/12/2024 18:18:37 08/12/2024 19:30:10 Posterior auricular pain 459219901 H92.09 Evaluation in the field was performed by my drum printer colleague, as noted above, I provided real-time direction and supervisio n for this visit. 64yo F hx prior AOM p/w 7d of pain and swelling behind R ear a/w headache. Denies measured fever but endorses chills, no ear discharge. Also endorsing nausea and dizziness. On drum printer eval VS wnl, exam notable for erythema and swelling over mastoid process with focal warmth and TTP, TM intact w/o clear signs of AOM. DDx includes mastoiditi s despite lack of measure fever thus recommend ED eval for possible IV abx and imaging. pt in agreement, will go via family transport. PCP: please f/up after ED visit Health Concerns Section Related Observation LastModified by Organization Detai ls LastModified Time None Recorded Concern Status LastModified by Organization Details LastModified Time None Recorded Advance Directives Directive None Recorded Payers Insurance Date Sequence Insurance Name Policy Number Policy Martinez Covered Member ID Martinez Member ID Guarantor Name 12/22/2023 1 [facility] - DOS PRIOR TO 2022 - DUAL ELIGIBLE (MEDICARE REPLACEMENT/ADV ANTAGE - HMO) Concepción Boothe [id number] Concepción Boothe 08/12/2024 1 [facility] - DOS ON OR AFTER 2022 - DUAL ELIGIBLE - [facility] OPTIONS AND ONE CARE (MEDICARE REPLACEMENT/ADV ANTAGE - HMO) Concepción Quevedosus [id number] Concepción Boothe Notes Date Note Type Note Provider Name and Address Organization Details Recorded Time 01/13/2023 text/html HPI: Pt. reports she had a cough two weeks was given meds and resolved but it returned last Friday (01/08). Also reports: +sore throat +SOB (difficult to speak w/ coughing spells)- at time of call speaking in clear full sentences. No audible distress noticed +intermittent chest tightness +intermittent chest pain midsternal when she coughs Tried dayquil/nyquil, robitussin, albuterol MDI 4 x day w/ little effect Negative C19 test Denies: -fever -n/v/d -myalgia -nasal congestion -rhinorrhea .................. .................. .................. .................. .................. .................. .................. ............... [facility] Nursing Assessment: Comments: Review request no further information needed to process visit .................. .................. .................. .................. .................. .................. .................. ............... Director Integrated Note From Yuriy Coon: Pt complains of cough and sore throat X2 weeks. Pt presents COAX 4 speaking in full sentences with adequate tidal volume and clear lung sounds in all wright . Pt has upper respiratory wheeze with coughing but has no production with coughing. Skin is PWD, HENNT unremarkable, PERRL, and pt has full ROM in all extremities. Pt denies NVD or CP but does report increased SOB while laying flat at night. [facility] contacted who prescribed 100mg Tessalon Perles PO and same was given without incident. Pt was educated on S/SX that would indicate 911/ED visit and was reminded to stay hydrated and continue with OTC medication to treat other symptoms as needed. .................. .................. .................. .................. .................. .................. .................. ............... Disposition: Fulfilled Malini Kaba MD [address] [facility],[address], [place], [phone], [employer] 01/13/2023 14:42:43 08/12/2024 text/html HPI: Caller: Juliofrancisco Gupta Number: Call made w/ Sp technical sales support manager #[phone]: Ear painB: pt reports R ear pain x 1 wk? t vasile to touch area behind ear? n ausea? o ccasional dizziness? u sing Tylenol w/ temp relief only? d enies fever, discharge/drainage , erythema, edema, foreign object? d enies recent URI sx such as nasal congestion, sinus pain, cough? p t speaking full, clear sentences during call, no acute distress notedA: Per protocol, OV now. No appta available in office or CC's today. [facility]. Pt is amenable to plan and agrees to stay by the phone for scheduling call.Pt given home care advice and advised on s/s requiring call back and /or emergent intervention- pt states understanding. R: Message routed to PCP and to [facility] as JUDSONI. Thank you. .................. .................. .................. .................. .................. .................. .................. ............... [facility] Nurse Triage Notes (Selena Terry): Chief Complaints: Earache PMH: COPD/Asthma Comments: [facility] RN did not require any additional information to process this visit. .................. .................. .................. .................. .................. .................. .................. ............... Director Integrated Note From Richie Garcia: Patient alert and oriented walks with a cane. Patient complains of pain behind her right ear times seven days. Patient reports pain, intermittent and pulsating. Patient unable to correlate action with increase or decrease of pain. Patient also complains of nausea and dizziness. Patient denies vomiting, diarrhea, or any other pain or complaints. Patient denies ear pain or pain on jaw movement. Patient denies recent trauma or falls.Patient pink warm dry, slightly raised area behind right ear. Secondary exam unremarkable. [facility] advises patient to go to ER for treatment of possible infection. Patient states they will be transported by private automobile in one hour. [facility] speaks to patient in [place]. .................. .................. .................. .................. .................. .................. .................. ............... [facility] Consulted: Payton Casas .................. .................. .................. .................. .................. .................. .................. ............... Disposition: Fulfilled Payton Casas MD [address] [place] [address],[address], [place], [phone], [employer] 08/12/2024 18:42:11 OBGyn Episode No OBEpisode recorded.
== END 2025-02-23 10:44 | disposition home or self-care (01) ==
LOC: HO.MAMMO 10:43
PROVIDERS: PCP Internal Medicine; Visit Provider Internal Medicine
DX: Z12.31 Encounter for screening mammogram for malignant neoplasm of breast (principal)
CPT/HCPCS: 77063; 77067

== ENCOUNTER → 2025-02-23 11:00 | Outpatient (BNV) | payer OTHER, SELFPAY | PROVIDERS: PCP Internal Medicine; Visit Provider Internal Medicine | DX: Z12.31 Encounter for screening mammogram for malignant neoplasm of breast (principal) | CPT/HCPCS: 77063; 77067 ==